=== PATIENT | female | born 1945 | race American Indian/Alaskan Native ===

== ENCOUNTER 2019-03-01 14:53 | Emergency (ER) | payer MEDICARE ==
--- NOTE | 2019-03-01 15:03 | ED PDOC ---
Arrival/HPI - General Historian: Patient - History of Present Illness Narrative History of Present Illness (Text): 03/01/19 15:26 73yr old female presents today with laceration to right 2nd finger. pt states she was going outside to the get the mail and cut her finger on the door. pt states she couldn't get bleeding to stop. pt states incident occurred prior to arrival. pt denies numbness, weakness, tingling in the extremity. pt is unsure of last tetanus shot. No other complaints. <Susana Rivas - Last Filed: 03/01/19 16:58> <Ross Puckett - Last Filed: 03/01/19 17:00> - General Chief Complaint: Abnormal Skin Integrity Time Seen by Provider: 03/01/19 15:00 Past Medical History - Provider Review Nursing Documentation Reviewed: Yes - Travel History Have you recently traveled outside [place] w/in the past 3 mons?: No <Susana Rivas - Last Filed: 03/01/19 16:58> Family/Social History - Physician Review Nursing Documentation Reviewed: Yes Family/Social History: Unknown Family HX Smoking Status: Never Smoked Hx Alcohol Use: No Hx Substance Use: No <Susana Rivas - Last Filed: 03/01/19 16:58> Allergies/Home Meds <Susana Rivas - Last Filed: 03/01/19 16:58> <Ross Puckett - Last Filed: 03/01/19 17:00> Allergies/Adverse Reactions: Allergies No Known Allergies Allergy (Verified 03/01/19 15:06) Review of Systems - Review of Systems Constitutional: absent: Fatigue, Fevers Respiratory: absent: SOB, Cough Cardiovascular: absent: Chest Pain, Palpitations Gastrointestinal: absent: Abdominal Pain, Nausea, Vomiting Genitourinary Female: absent: Dysuria, Frequency, Hematuria Musculoskeletal: Arthralgias Skin: Laceration Neurological: absent: Headache, Dizziness Psychiatric: absent: Anxiety, Depression <Susana Rivas - Last Filed: 03/01/19 16:58> Physical Exam Vital Signs Reviewed: Yes Temperature: Afebrile Blood Pressure: Normal Pulse: Regular Respiratory Rate: Normal Appearance: Positive for: Well-Appearing, Non-Toxic, Comfortable Pain Distress: None Mental Status: Positive for: Alert and Oriented X 3 - Systems Exam Head: Present: Atraumatic Respiratory/Chest: Present: Clear to Auscultation Cardiovascular: Present: Regular Rate and Rhythm Upper Extremity: Present: Normal ROM, NORMAL PULSES, Tenderness (right 2nd finger; there is a superfical skin avulsion noted to the dorsal aspect of the finger over the middle phalanx just adjacent to the DIP. full rom of finger; sensation and distal pulses intact. cap refill <2. ), Neurovascularly Intact, Capillary Refill < 2s. No: Swelling, Erythema Neurological: Present: GCS=15, Speech Normal, Motor Func Grossly Intact, Normal Sensory Function Skin: Present: Warm, Dry, Normal Color Psychiatric: Present: Alert, Oriented x 3 <Susana Rivas - Last Filed: 03/01/19 16:58> Vital Signs Temp Pulse Resp BP Pulse Ox 03/01/19 15:34 98.2 F 76 18 158/96 H 99 <Ross Puckett - Last Filed: 03/01/19 17:00> Medical Decision Making ED Course and Treatment: 03/01/19 15:41 73yr old female with superificial avulsion to right 2nd finger. wound cleaned and irrigated with high pressure irrigation; gelfoam applied; bleeding controlled. Patient was advised to watch the wound daily and return immediately if infection develops. Patient was advised that after 2 days the Gelfoam will fall off and she can then start applying bacitracin. pt refused tetanus and keflex pt eloped from ER without completion of treatment. 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 <Ross Puckett - Last Filed: 03/01/19 17:00> Disposition/Present on Arrival - Present on Arrival Any Indicators Present on Arrival: No History of DVT/PE: No History of Uncontrolled Diabetes: No Urinary Catheter: No History of Decub. Ulcer: No - Disposition Have Diagnosis and Disposition been Completed?: Yes Disposition Time: 16:13 Patient Plan: Other (eloped) <Susana Rivas - Last Filed: 03/01/19 16:58> <Ross Puckett - Last Filed: 03/01/19 17:00> - Disposition Diagnosis: Abrasion, finger w/o infection, Skin avulsion Disposition: ELOPEMENT - ER ONLY Condition: UNKNOWN Discharge Instructions (ExitCare): Skin Abrasions (DC) Forms: [employer] (Italian)
[2019-03-01 15:34] VITALS: BP 158/96; PULSE 76; RESP 18; TEMP 98.2; O2SAT 99
[2019-03-01] MEDS ORDERED: TDAP Vaccine 0.5 mL Syr IM ONE (16:09)
[2019-03-01] MEDS ORDERED: Absorbable Gelatin Sponge Size 12-7 ONE (16:10)
== END 2019-03-01 16:20 | disposition left against medical advice (07) ==
LOC: ED 14:53
DX: S61.300A Unspecified open wound of right index finger with damage to nail, initial encounter (principal); W45.8XXA Other foreign body or object entering through skin, initial encounter; Y92.008 Other place in unspecified non-institutional (private) residence as the place of occurrence of the external cause